=== PATIENT | male | born 1980 | race Caucasian/White ===

== ENCOUNTER 2016-07-13 15:37 | Observation (INO) | payer MEDICAID ==
[2016-07-13] MEDS ORDERED: Sodium Chloride 0.9% 1,000 ML IV ONE ×2 (15:46→16:41)
[2016-07-13] MEDS ORDERED: Diphtheria,Pertussis(Acell),Tetanus Vaccine 0.5 ML SDV IM ONE (16:03)
--- NOTE | 2016-07-13 16:20 | EDM.PDOC ---
[id number] Provider: 07/13/16 15:37 Source of Information: Reports: Patient, EMS History Limitations: Reports: Other (hypothermia) - History of Present Illness INITIAL COMMENTS - FREE TEXT/NARRATIVE: 36 y.o.w.m came to the ed after he fell though ice while [place], was holding on the edge of the [place] ice till help arrived. No trauma. As the patient arrived her in the ed, he was shivering, was OX3, temp was 94F taken oral. warm plackets Bear hugger were applied, warm NS was given IV and pt was able to drink warm water. BP was 125/97 pulse was 100 bpm. Pt denied drug/ etoh use. Onset: sudden Onset Date: 07/13/16 Onset Time: 16:35 Duration: Hour(s): Location: Reports: generalized Severity: moderate Context: Reports: Other (fell through ice) Associated Symptoms: Reports: weakness, other (shivering) - Related Data Allergies Allergy/AdvReac Type Severity Reaction Status Date / Time No Known Allergies Allergy Verified 07/13/16 16:31 Home Meds: Home Meds NK [No Known Home Meds] 07/13/16 [History] ED ROS GENERAL - Review of Systems Review Of Systems: See Below Constitutional: Reports: weakness, other (hypothermic, shivering) HEENT: Reports: No symptoms Respiratory: Reports: No Symptoms Cardiovascular: Reports: No symptoms Endocrine: Reports: no symptoms GI/Abdominal: Reports: No symptoms : Reports: no symptoms Musculoskeletal: Reports: muscle pain Skin: Reports: cyanosis, rash (left hand) Neurological: Reports: Tremors (shivering) Psychiatric: Reports: No symptoms Hematologic/Lymphatic: Reports: no symptoms Immunologic: Reports: no symptoms ED EXAM, GENERAL - Physical Exam Exam: See Below Exam Limited By: Other (hypothermic) General Appearance: alert, WD/WN, moderate distress Eye Exam: bilateral eye: normal inspection Ears: normal external exam Ear Exam: bilateral ear: auricle normal Nose: normal inspection, normal mucosa, no blood Throat/Mouth: Normal inspection, Normal lips, Normal teeth, Normal gums, Normal oropharynx Head: atraumatic, normocephalic Neck: normal inspection, supple, non-tender, full range of motion Respiratory/Chest: no respiratory distress, lungs clear, normal breath sounds, no accessory muscle use, chest non-tender Cardiovascular: normal peripheral pulses, regular rate, rhythm, no edema, no gallop GI/Abdominal: normal bowel sounds, soft, non tender, no organomegaly, no distention (Male) Exam: Deferred Rectal (Males) Exam: Deferred Back Exam: normal inspection, full range of motion Extremities: normal inspection, normal range of motion, non-tender, no pedal edema Neurological: alert, oriented, CN II-XII intact, normal cognition Psychiatric: anxious Skin Exam: Cool, Cyanosis (lips) Lymphatic: no adenopathy EKG INTERPRETATION EKG Date: 07/13/16 Time: 16:10 Rhythm: NSR Rate (beats/min): 95 [place]: normal P-wave: present QRS: normal ST-T: normal QT: normal Comparison: NA - no prior EKG EKG Interpretation Comments: No Metzger waves Course - Vital Signs Text/Narrative:: 36 y.o.w.m came to the ed after he fell though ice while [place] his [place], was holding on the edge of the [place] ice till help arrived. No trauma. As the patient arrived her in the ed, he was shivering, was OX3, temp was 94F taken oral, warm plackets, Bear hugger were applied, warm NS was given IV and pt was able to drink warm water. BP was 125/97 pulse was 100 bpm. puls ox was 98%. Pt denied drug/etoh use. PE: Hypothermic temp 94 F shivering Ox3 abrasion left hand Labs: CK 2348, Cr 1.5 BUN 10 WBC 17K Drug screen and lactic acid results are pending Imaging: Not indicated ECG: NSR rate 95, no Metzger waves Impression: Hypothermia, Rhabdomyelysis, dehydration, leucocytosis Tx: warm NS central and perpheral warming, Reexam: Improved, pt was able to drink warm water. plan: Admit to tele. Dr. Bailey accepted the patient Last Recorded V/S: Last Vital Signs Temp 36.7 C 07/13/16 18:10 Pulse 102 H 07/13/16 18:10 Resp 18 07/13/16 18:10 BP 119/58 L 07/13/16 18:10 Pulse Ox 96 07/13/16 18:10 - Orders/Labs/Meds Labs: Laboratory Tests 07/13/16 07/13/16 07/13/16 Range/Units 15:55 15:55 15:55 WBC 17.7 H (4.5-12.0) X10-3/uL RBC 5.49 (4.30-5.75) x10(6)uL Hgb 17.0 H (11.5-15.5) g/dL Hct 52.0 H (30.0-51.3) % MCV 94.6 (80-96) fL MCH 30.9 (27.7-33.6) pg MCHC 32.6 (32.2-35.4) g/dL RDW 12.4 (11.5-15.5) % Plt Count 322 (125-369) X10(3)uL MPV 8.3 (7.4-10.4) fL Add Manual Diff Yes Neutrophils % (Manual) 72 (46-82) % Lymphocytes % (Manual) 26 (13-37) % Monocytes % (Manual) 2 L (4-12) % PT 11.0 (8.7-11.1) INR 1.09 (0.89-1.13) ABG pH (7.35-7.45) ABG pCO2 (35-45) mmHg ABG pO2 (83-108) mmHg ABG HCO3 (22-26) mmol/L ABG O2 Saturation (96-97) % ABG Base Excess (-2-2) Bipin Test O2 Delivery Device Oxygen Flow Rate L Sodium 138 (135-145) mmol/L Potassium 4.6 (3.5-5.3) mmol/L Chloride 104 (100-110) mmol/L Carbon Dioxide 14 L (23-29) mmol/L BUN 10 (5-20) mg/dL Creatinine 1.5 H (0.6-1.3) mg/dL Est Cr Clr Drug Dosing 63.04 mL/min Estimated GFR (MDRD) 53 L (>60) BUN/Creatinine Ratio 6.7 L (9-20) Glucose 196 H (80-116) mg/dL Lactic Acid (0.5-2.2) mmol/L Calcium 8.4 L (8.6-10.2) mg/dL Creatine Kinase 2142 H* (60-160) IU/L Troponin I (0.02-0.06) NG/ML B-Natriuretic Peptide (0-100) pg/mL Urine Color (YELLOW) Urine Appearance (CLEAR) Urine pH (5.0-6.5) Ur Specific [place] (1.010-1.025) Urine Protein (NEGATIVE) mg/dL Urine Glucose (UA) (NEGATIVE) mg/dL Urine Ketones (NEGATIVE) mg/dL Urine Occult Blood (NEGATIVE) Urine Nitrite (NEGATIVE) Urine Bilirubin (NEGATIVE) Urine Urobilinogen (NEGATIVE) mg/dL Ur Leukocyte Esterase (NEGATIVE) Urine RBC (0) Urine WBC (0) Ur Squamous Epith Cells (NS,R,O) Urine Bacteria (NS) Urine Opiates Screen (NEGATIVE) Ur Oxycodone Screen (NEGATIVE) Ur Propoxyphene Screen (NEGATIVE) Ur Barbituates Screen (NEGATIVE) Ur Tricyclics Screen (NEGATIVE) Ur Phencyclidine Scrn (NEGATIVE) Ur Amphetamine Screen (NEGATIVE) Urine MDMA Screen (NEGATIVE) U Benzodiazepines Scrn (NEGATIVE) U Cocaine Metab Screen (NEGATIVE) U Marijuana (THC) Screen (NEGATIVE) Ethyl Alcohol (<0.01) % 07/13/16 07/13/16 07/13/16 Range/Units 15:55 15:55 15:55 WBC (4.5-12.0) X10-3/uL RBC (4.30-5.75) x10(6)uL Hgb (11.5-15.5) g/dL Hct (30.0-51.3) % MCV (80-96) fL MCH (27.7-33.6) pg MCHC (32.2-35.4) g/dL RDW (11.5-15.5) % Plt Count (125-369) X10(3)uL MPV (7.4-10.4) fL Add Manual Diff Neutrophils % (Manual) (46-82) % Lymphocytes % (Manual) (13-37) % Monocytes % (Manual) (4-12) % PT (8.7-11.1) INR (0.89-1.13) ABG pH (7.35-7.45) ABG pCO2 (35-45) mmHg ABG pO2 (83-108) mmHg ABG HCO3 (22-26) mmol/L ABG O2 Saturation (96-97) % ABG Base Excess (-2-2) Bipin Test O2 Delivery Device Oxygen Flow Rate L Sodium (135-145) mmol/L Potassium (3.5-5.3) mmol/L Chloride (100-110) mmol/L Carbon Dioxide (23-29) mmol/L BUN (5-20) mg/dL Creatinine (0.6-1.3) mg/dL Est Cr Clr Drug Dosing mL/min Estimated GFR (MDRD) (>60) BUN/Creatinine Ratio (9-20) Glucose (80-116) mg/dL Lactic Acid 13.1 H* (0.5-2.2) mmol/L Calcium (8.6-10.2) mg/dL Creatine Kinase (60-160) IU/L Troponin I < 0.01 L (0.02-0.06) NG/ML B-Natriuretic Peptide 21 (0-100) pg/mL Urine Color (YELLOW) Urine Appearance (CLEAR) Urine pH (5.0-6.5) Ur Specific [place] (1.010-1.025) Urine Protein (NEGATIVE) mg/dL Urine Glucose (UA) (NEGATIVE) mg/dL Urine Ketones (NEGATIVE) mg/dL Urine Occult Blood (NEGATIVE) Urine Nitrite (NEGATIVE) Urine Bilirubin (NEGATIVE) Urine Urobilinogen (NEGATIVE) mg/dL Ur Leukocyte Esterase (NEGATIVE) Urine RBC (0) Urine WBC (0) Ur Squamous Epith Cells (NS,R,O) Urine Bacteria (NS) Urine Opiates Screen (NEGATIVE) Ur Oxycodone Screen (NEGATIVE) Ur Propoxyphene Screen (NEGATIVE) Ur Barbituates Screen (NEGATIVE) Ur Tricyclics Screen (NEGATIVE) Ur Phencyclidine Scrn (NEGATIVE) Ur Amphetamine Screen (NEGATIVE) Urine MDMA Screen (NEGATIVE) U Benzodiazepines Scrn (NEGATIVE) U Cocaine Metab Screen (NEGATIVE) U Marijuana (THC) Screen (NEGATIVE) Ethyl Alcohol (<0.01) % 07/13/16 07/13/16 07/13/16 Range/Units 15:55 16:25 16:25 WBC (4.5-12.0) X10-3/uL RBC (4.30-5.75) x10(6)uL Hgb (11.5-15.5) g/dL Hct (30.0-51.3) % MCV (80-96) fL MCH (27.7-33.6) pg MCHC (32.2-35.4) g/dL RDW (11.5-15.5) % Plt Count (125-369) X10(3)uL MPV (7.4-10.4) fL Add Manual Diff Neutrophils % (Manual) (46-82) % Lymphocytes % (Manual) (13-37) % Monocytes % (Manual) (4-12) % PT (8.7-11.1) INR (0.89-1.13) ABG pH (7.35-7.45) ABG pCO2 (35-45) mmHg ABG pO2 (83-108) mmHg ABG HCO3 (22-26) mmol/L ABG O2 Saturation (96-97) % ABG Base Excess (-2-2) Bipin Test O2 Delivery Device Oxygen Flow Rate L Sodium (135-145) mmol/L Potassium (3.5-5.3) mmol/L Chloride (100-110) mmol/L Carbon Dioxide (23-29) mmol/L BUN (5-20) mg/dL Creatinine (0.6-1.3) mg/dL Est Cr Clr Drug Dosing mL/min Estimated GFR (MDRD) (>60) BUN/Creatinine Ratio (9-20) Glucose (80-116) mg/dL Lactic Acid (0.5-2.2) mmol/L Calcium (8.6-10.2) mg/dL Creatine Kinase (60-160) IU/L Troponin I (0.02-0.06) NG/ML B-Natriuretic Peptide (0-100) pg/mL Urine Color Yellow (YELLOW) Urine Appearance Clear (CLEAR) Urine pH 5.0 (5.0-6.5) Ur Specific [place] 1.020 (1.010-1.025) Urine Protein Trace (NEGATIVE) mg/dL Urine Glucose (UA) 250 H (NEGATIVE) mg/dL Urine Ketones 15 H (NEGATIVE) mg/dL Urine Occult Blood Large H (NEGATIVE) Urine Nitrite Negative (NEGATIVE) Urine Bilirubin Negative (NEGATIVE) Urine Urobilinogen Normal (NEGATIVE) mg/dL Ur Leukocyte Esterase Negative (NEGATIVE) Urine RBC 5-10 (0) Urine WBC 0-5 (0) Ur Squamous Epith Cells Occasional (NS,R,O) Urine Bacteria Few H (NS) Urine Opiates Screen Negative (NEGATIVE) Ur Oxycodone Screen Negative (NEGATIVE) Ur Propoxyphene Screen Negative (NEGATIVE) Ur Barbituates Screen Negative (NEGATIVE) Ur Tricyclics Screen Negative (NEGATIVE) Ur Phencyclidine Scrn Negative (NEGATIVE) Ur Amphetamine Screen Negative (NEGATIVE) Urine MDMA Screen Negative (NEGATIVE) U Benzodiazepines Scrn Negative (NEGATIVE) U Cocaine Metab Screen Negative (NEGATIVE) U Marijuana (THC) Screen Negative (NEGATIVE) Ethyl Alcohol < 0.01 (<0.01) % 07/13/ Range/Units 16:40 WBC (4.5-12.0) X10-3/uL RBC (4.30-5.75) x10(6)uL Hgb (11.5-15.5) g/dL Hct (30.0-51.3) % MCV (80-96) fL MCH (27.7-33.6) pg MCHC (32.2-35.4) g/dL RDW (11.5-15.5) % Plt Count (125-369) X10(3)uL MPV (7.4-10.4) fL Add Manual Diff Neutrophils % (Manual) (46-82) % Lymphocytes % (Manual) (13-37) % Monocytes % (Manual) (4-12) % PT (8.7-11.1) INR (0.89-1.13) ABG pH 7.32 L (7.35-7.45) ABG pCO2 29 L (35-45) mmHg ABG pO2 92 (83-108) mmHg ABG HCO3 14 L (22-26) mmol/L ABG O2 Saturation 97 (96-97) % ABG Base Excess -10.1 L (-2-2) Bipin Test Passed O2 Delivery Device Room air Oxygen Flow Rate 0 L Sodium (135-145) mmol/L Potassium (3.5-5.3) mmol/L Chloride (100-110) mmol/L Carbon Dioxide (23-29) mmol/L BUN (5-20) mg/dL Creatinine (0.6-1.3) mg/dL Est Cr Clr Drug Dosing mL/min Estimated GFR (MDRD) (>60) BUN/Creatinine Ratio (9-20) Glucose (80-116) mg/dL Lactic Acid (0.5-2.2) mmol/L Calcium (8.6-10.2) mg/dL Creatine Kinase (60-160) IU/L Troponin I (0.02-0.06) NG/ML B-Natriuretic Peptide (0-100) pg/mL Urine Color (YELLOW) Urine Appearance (CLEAR) Urine pH (5.0-6.5) Ur Specific [place] (1.010-1.025) Urine Protein (NEGATIVE) mg/dL Urine Glucose (UA) (NEGATIVE) mg/dL Urine Ketones (NEGATIVE) mg/dL Urine Occult Blood (NEGATIVE) Urine Nitrite (NEGATIVE) Urine Bilirubin (NEGATIVE) Urine Urobilinogen (NEGATIVE) mg/dL Ur Leukocyte Esterase (NEGATIVE) Urine RBC (0) Urine WBC (0) Ur Squamous Epith Cells (NS,R,O) Urine Bacteria (NS) Urine Opiates Screen (NEGATIVE) Ur Oxycodone Screen (NEGATIVE) Ur Propoxyphene Screen (NEGATIVE) Ur Barbituates Screen (NEGATIVE) Ur Tricyclics Screen (NEGATIVE) Ur Phencyclidine Scrn (NEGATIVE) Ur Amphetamine Screen (NEGATIVE) Urine MDMA Screen (NEGATIVE) U Benzodiazepines Scrn (NEGATIVE) U Cocaine Metab Screen (NEGATIVE) U Marijuana (THC) Screen (NEGATIVE) Ethyl Alcohol (<0.01) % Meds: Medications Discontinued Medications Generic Name Dose Route Start Last Admin Trade Name Freq PRN Reason Stop Dose Admin Diphtheria/Tetanus/Acell Pertussis 0.5 ml 07/13/16 16:03 07/13/16 17:01 Adacel IM 07/13/16 16:04 0.5 ml .ONCE ONE Administration Sodium Chloride 1,000 mls @ 999 mls/hr 07/13/16 15:46 07/13/16 15:40 Normal Saline IV 07/13/16 16:46 999 mls/hr .BOLUS ONE Administration Sodium Chloride 1,000 mls @ 999 mls/hr 07/13/16 16:41 07/13/16 16:41 Normal Saline IV 07/13/16 17:41 999 mls/hr .BOLUS ONE Administration Sodium Chloride 1,000 mls @ 150 mls/hr 07/13/16 17:15 07/13/16 18:00 Normal Saline IV 150 mls/hr ASDIRECTED CAM Administration Nicotine 21 mg 07/13/16 18:00 07/13/16 18:30 Habitrol TRDERM 07/13/16 18:01 Not Given ONETIME ONE Sodium Chloride 10 ml 07/13/16 16:59 Saline Flush FLUSH ASDIRECTED PRN Keep Vein Open Departure - Departure Time of Disposition: 18:00 Disposition: Admitted As Inpatient 65 Condition: fair Clinical Impression: Elevated lactic acid level Hypothermia Qualifiers: Encounter type: subsequent encounter Qualified Code(s): T68.XXXD - Hypothermia , subsequent encounter Rhabdomyolysis Qualifiers: Rhabdomyolysis type: non-traumatic Qualified Code(s): M62.82 - Rhabdomyolysis
[2016-07-13] MEDS ORDERED: Sodium Chloride 0.9% 10 ML Syringe FLUSH PRN (16:59)
[2016-07-13] MEDS ORDERED: Sodium Chloride 0.9% 1,000 ML IV SCH (17:15)
[2016-07-13] MEDS ORDERED: Nicotine 21 MG/24 Hr Patch TRDERM ONE (18:00)
[2016-07-13 18:10] VITALS: BP 119/58
--- NOTE | 2016-07-13 18:52 | PCM.HP ---
H&P History of Present Illness - General Date of Service: 07/13/16 Source of Information: Patient - History of Present Illness Initial Comments - Free Text/Narative: 36-year-old male who fell and icy water. He was therefore given a 45 minutes before rescue. Upon arrival in the ER he was alert but she was hypotonic. He was admitted for rehydration and for fear of rhabdomyolysis. I did time that I saw him he complains of no pain he has mild tingling of the fingertips but his temperature is back to normal. He has no nausea vomiting headache chest pain or shortness of breath and his airway is intact. He is otherwise healthy with no active medical problems. - Related Data Allergies/Adverse Reactions: Allergies Allergy/AdvReac Type Severity Reaction Status Date / Time No Known Allergies Allergy Verified 07/13/16 16:31 Home Medications: Home Meds NK [No Known Home Meds] 07/13/16 [History] Past Medical History HEENT History: Reports: None Cardiovascular History: Reports: Heart murmur - Infectious Disease History Infectious Disease History: Reports: Chicken pox - Past Surgical History HEENT Surgical History: Reports: Other (see below) Other HEENT Surgeries/Procedures: wisdom tooth removed Cardiovascular Surgical History: Reports: None Social & Family History - Family History Family Medical History: Noncontributory - Tobacco Use Smoking Status *Q: Current Every Day Smoker Years of Tobacco use: 20 Packs/Tins Daily: 1 - Caffeine Use Caffeine Use: Reports: Coffee, Energy drinks, Soda, Tea - Recreational Drug Use Recreational Drug Use: No H&P Review of Systems - Review of Systems: Review Of Systems: ROS reveals no pertinent complaints other than HPI. Exam - Exam Exam: See Below - Vital Signs Vital Signs: Last Vital Signs Temp 98.1 F 07/13/16 18:10 Pulse 102 H 07/13/16 18:10 Resp 18 07/13/16 18:10 BP 119/58 L 07/13/16 18:10 Pulse Ox 96 07/13/16 18:10 Weight: 77.519 kg - Exam General: alert, oriented, 4 HEENT: PERRLA, Hearing intact, Mucosa moist & pink, Nares patent, Normal nasal septum, Posterior pharynx clear, Conjunctiva clear, EOMI, EACs clear, TMs clear Neck: supple, trachea midline, 2 Lungs: Clear to auscultation, Normal respiratory effort Cardiovascular: regular rate, regular rhythm Abdomen: normal bowel sounds, soft (Male) Exam: Deferred Rectal (Males) Exam: Deferred Back Exam: normal inspection, full range of motion, NT Extremities: 3, normal inspection, 10 Skin: warm, dry, intact Neurological: cranial nerves intact, reflexes equal bilateral Neuro Extensive - Mental Status: alert, oriented x3, normal mood/affect, normal cognition Neuro Extensive - Motor, Sensory, Reflexes: CN II-XII intact, normal gait, normal reflexes Psychiatric: alert, normal affect, normal mood - Patient Data Result Diagrams: 07/13/16 15:55 07/13/16 15:55 EKG INTERPRETATION Rhythm: NSR *Q Meaningful Use (ADM) - VTE *Q VTE Criteria *Q: - Stroke *Q Stroke Criteria *Q: - AMI *Q AMI Criteria *Q: - Problem List (1) Hypothermia SNOMED Code(s): 898803731 ICD Code: T68.XXXA - HYPOTHERMIA, INITIAL ENCOUNTER Status: Acute Current Visit: Yes Qualifiers: Encounter type: subsequent encounter Qualified Code(s): T68.XXXD - Hypothermia, subsequent encounter (2) Acute renal failure SNOMED Code(s): 18886242 ICD Code: N17.9 - ACUTE KIDNEY FAILURE, UNSPECIFIED Status: Acute Current Visit: Yes Qualifiers: Acute renal failure type: unspecified Qualified Code(s): N17.9 - Acute kidney failure, unspecified (3) Rhabdomyolysis SNOMED Code(s): 562348195 ICD Code: M62.82 - RHABDOMYOLYSIS Status: Acute Current Visit: Yes Qualifiers: Rhabdomyolysis type: non-traumatic Qualified Code(s): M62.82 - Rhabdomyolysis Problem List Initiated/Reviewed/Updated: Yes Orders Last 24hrs: Medication Orders Sodium Chloride (Normal Saline) 1,000 mls @ 150 mls/hr IV ASDIRECTED CAM Last Admin: 07/13/16 18:00 Dose: 150 mls/hr Sodium Chloride (Saline Flush) 10 ml FLUSH ASDIRECTED PRN PRN Reason: Keep Vein Open Assessment/Plan Comment:: The patient is stable, with normal vital signs with no complaints actually. His has received at least 1 and1/2 L of NS. I advised the nurse to finish the second liter and discharge the patient home he should see his primary care physician in 2 days for repeat basic metabolic profile CK and lactic gas
== END 2016-07-13 20:05 | disposition home or self-care (01) ==
LOC: FB.ED 15:37 → FB.MS 17:10 → FB.ED 17:17
PROVIDERS: ADMIT Emergency Medicine; ATTEND Family Medicine
DX: T68.XXXD Hypothermia, subsequent encounter (principal); N17.9 Acute kidney failure, unspecified; M62.82 Rhabdomyolysis; Z98.890 Other specified postprocedural states; F17.210 Nicotine dependence, cigarettes, uncomplicated
CPT/HCPCS: 36415; 36600; 80048; 80305; 81001; 82550; 82803; 83605; 83880; 84484; 85025; 85610; 90471; 90715; 93005; 96360; 96361; 99284; G0378; G0480; J7040; 99218; 99285